=== PATIENT | female | born 1970 | race Two or more races ===

== ENCOUNTER 2025-03-14 12:45 | Inpatient (IN) | payer OTHER ==
[~2025-03-14] VITALS: Ht 160 cm; Wt 77.6 kg
[2025-03-14] MEDS ORDERED: CARVEDILOL 12.5MG (14:37)
[2025-03-14] MEDS ORDERED: ZESTRIL10 M1 (14:37)
[2025-03-14] MEDS ORDERED: ADULT LOW DOSE81 M1 (14:37)
[2025-03-14] MEDS ORDERED: HYDROCHLOROTHIA25 MG (14:38)
[2025-03-14] MEDS ORDERED: LEVO-T88 MCG (14:38)
[2025-03-14 14:55] VITALS: BP 159/88
[2025-03-21] MEDS ORDERED: 0.9 % SODIUM CHLORIDE 1,000 ML IV SCH (13:15)
[2025-03-21] MEDS ORDERED: OxyCODONE HCL 5 MG TABLET (ROXICODONE) PO PRN (13:15)
[2025-03-21] MEDS ORDERED: DEXTROSE 50 % IN WATER 0.5 G/ML VIAL IV PRN (13:15)
[2025-03-21] MEDS ORDERED: ONDANSETRON HCL 2 MG/ML VIAL IV PRN (13:15)
[2025-03-21] MEDS ORDERED: MORPHINE SULFATE 4 MG/ML CARTRIDGE IV PRN (13:15)
[2025-03-21] MEDS ORDERED: METRONIDAZOLE/SODIUM CHLORIDE 500 MG/100 ML PIGGYBACK IV ONE (13:45)
[2025-03-21] MEDS ORDERED: POVIDONE-IODINE 118 ML BOTT TOP ONE (13:45)
[2025-03-21] MEDS ORDERED: HEMOSTATIC MATRIX 1 KIT KIT TOP ONE (13:45)
[2025-03-21] MEDS ORDERED: CEFTRIAXONE SODIUM 2,000 MG VIAL IV ONE (13:45)
[2025-03-21] MEDS ORDERED: ACETAMINOPHEN 500 MG GEL..CAP PO SCH (14:00)
[2025-03-21 15:21] LABS: BASO % 0.7 % (0.1-1.2); EOS # 0.08 (0.04-0.54); EOS % 1.3 % (0.7-7.0); LYMPH # 1.36 (1.18-3.74); LYMPH % 22.8 % (19.3-53.1); MEAN PLATELET VOLUME 10.80 fl (9.4-12.4); MONO # 0.56 (0.24-0.82); MONO % 9.4 % (4.7-12.5); NEUT # 3.90 (1.56-6.13); NEUT % 65.5 % (34.0-71.1); RED CELL DISTRIBUTION WIDTH 12.8 % (11.6-14.4)
[2025-03-21 15:55] LABS: BUN CREA RATIO 11.0 (7.0-25.0); CREATININE SERUM 0.83 mg/dL (0.55-1.02); GFR 71.11; GLUCOSE FASTING 104.0 mg/dL (65-100); OSMOLALITY SERUM 288.0 MOSM/KG (275-295)
[2025-03-21] MEDS ORDERED: ENALAPRILAT DIHYDRATE 1.25 MG/ML VIAL IV STA (16:19)
[2025-03-21] MEDS ORDERED: ENALAPRILAT DIHYDRATE 1.25 MG/ML VIAL IV PRN (16:30)
[2025-03-21 16:42] VITALS: BP 112/61; O2SAT 98
[2025-03-21] MEDS ORDERED: POLYETHYLENE GLYCOL 3350 17 GM BLIST.PACK PO SCH (17:00)
[2025-03-21] MEDS ORDERED: GABAPENTIN 300 MG CAPSULE PO SCH (17:00)
[2025-03-21] MEDS ORDERED: METRONIDAZOLE/SODIUM CHLORIDE 500 MG/100 ML PIGGYBACK IV SCH (17:00)
[2025-03-21] MEDS ORDERED: HYOSCYAMINE SULFATE 0.125 MG TAB.SUBL SL SCH (17:00)
[2025-03-21] MEDS ORDERED: CARVEDILOL 12.5 MG TABLET PO SCH (17:00)
[2025-03-21] MEDS ORDERED: CELECOXIB 200 MG CAPSULE PO SCH (21:00)
[2025-03-21] MEDS ORDERED: FAMOTIDINE/PF 20 MG/2 ML VIAL IV PUSH SCH (21:00)
[2025-03-22 00:32] VITALS: BP 139/80; O2SAT 100
[2025-03-22] MEDS ORDERED: LEVOTHYROXINE SODIUM 88 MCG TABLET PO SCH (06:00)
[2025-03-22] MEDS ORDERED: TRAM1TAB98 PO (06:33)
[2025-03-22 07:15] LABS: BASO % 0.7 % (0.1-1.2); EOS # 0.08 (0.04-0.54); EOS % 0.8 % (0.7-7.0); LYMPH # 1.36 (1.18-3.74); LYMPH % 13.1 % (19.3-53.1); MEAN PLATELET VOLUME 11.40 fl (9.4-12.4); MONO # 1.10 (0.24-0.82); MONO % 10.6 % (4.7-12.5); NEUT # 7.74 (1.56-6.13); NEUT % 74.4 % (34.0-71.1); RED CELL DISTRIBUTION WIDTH 12.7 % (11.6-14.4)
[2025-03-22 08:01] LABS: BUN CREA RATIO 11.0 (7.0-25.0); CREATININE SERUM 0.74 mg/dL (0.55-1.02); GFR 81.18; GLUCOSE FASTING 91.0 mg/dL (65-100); OSMOLALITY SERUM 290.0 MOSM/KG (275-295)
[2025-03-22] MEDS ORDERED: LISINOPRIL 10 MG TABLET PO SCH (09:00)
[2025-03-22] MEDS ORDERED: HYDROCHLOROTHIAZIDE 25 MG TABLET PO SCH (09:00)
[2025-03-22] MEDS ORDERED: ENOXAPARIN SODIUM 40 MG/0.4 ML SYRINGE SUBCUTANEO SCH (17:00)
[2025-03-23] MEDS ORDERED: ENOXAPARIN SODIUM 40 MG/0.4 ML SYRINGE SUBCUTANEO SCH (09:00)
== END 2025-03-22 13:45 | disposition home or self-care (01) | DRG 349 ==
LOC: SURG 03-21 07:00 → O/R 03-21 07:11 → SURG 03-21 12:45
PROVIDERS: ADMIT Surgery; ATTEND Surgery
PROC: 3E0T3BZ Introduction of Anesthetic Agent into Peripheral Nerves and Plexi, Percutaneous Approach (ICD-10-PCS; 2025-03-21)
PROC: 0DBP7ZZ Excision of Rectum, Via Natural or Artificial Opening (ICD-10-PCS; principal; 2025-03-21 07:00)
DX: D12.8 Benign neoplasm of rectum (principal); D37.5 Neoplasm of uncertain behavior of rectum
CPT/HCPCS: 0184T; 64430